=== PATIENT | female | born 1965 | race Caucasian/White ===

== ENCOUNTER 2018-04-25 10:00 | Day surgery (SDC) | payer BC ==
[~2018-04-25 10:00] MED LIST: ALLERGY MED PO; Antacid500 MG PO; BIRTH CONTROL; LISHYD2025 PO; LOSA25 PO; METF500 PO; PRAVASTATIN SOD10 MG PO; Phentermine HCl30 MG PO; SITA100T2 PO
== END 2018-04-30 23:10 | disposition home or self-care (01) ==
LOC: MOI MAM 10:00
DX: D05.11 Intraductal carcinoma in situ of right breast (principal)
CPT/HCPCS: 19081; 88305; 88342

== ENCOUNTER 2018-07-24 13:30 | Day surgery (SDC) | payer BC | END 2018-07-24 23:02 | disposition home or self-care (01) | LOC: NM 13:30 → RAD 13:30 → ORSCMMR 13:30 → NM 14:00 → ORSCMMR 23:02 → NM 23:02 | DX: D05.11 Intraductal carcinoma in situ of right breast (principal) | CPT/HCPCS: 38792; A9520 ==

== ENCOUNTER 2019-05-20 08:57 | Day surgery (SDC) | payer BC ==
[~2019-05-20] VITALS: Ht 170.2 cm; Wt 98.1 kg
[~2019-05-20 08:57] MED LIST changes: +CLON.1 PO; +CLON.5 PO; +Daily Multiple1 EACH PO; +Diethylpropion75 MG PO; +Ferrous Sulfat325 M2 PO; +GLIP10 PO; +LANSOPRAZOLE15 MG PO; +LOSARTAN POTAS100 MG PO; +METO50 PO; +Nolvadex20 MG PO; +Pravachol40 MG PO; +ZYRTEC10 M1 PO
== END 2019-05-20 12:52 | disposition home or self-care (01) ==
LOC: ORSCSDS 08:57
PROVIDERS: Student in an Organized Health Care Education/Training Program
PROC: 0DB48ZX Excision of Esophagogastric Junction, Via Natural or Artificial Opening Endoscopic, Diagnostic (ICD-10-PCS; principal; 2019-05-20 10:15)
PROC: 0DB98ZX Excision of Duodenum, Via Natural or Artificial Opening Endoscopic, Diagnostic (ICD-10-PCS; principal; 2019-05-20 10:15)
PROC: 0DBL8ZX Excision of Transverse Colon, Via Natural or Artificial Opening Endoscopic, Diagnostic (ICD-10-PCS; principal; 2019-05-20 10:15)
PROC: 0DB68ZX Excision of Stomach, Via Natural or Artificial Opening Endoscopic, Diagnostic (ICD-10-PCS; principal; 2019-05-20 10:15)
DX: D50.9 Iron deficiency anemia, unspecified (principal); K44.9 Diaphragmatic hernia without obstruction or gangrene; K21.9 Gastro-esophageal reflux disease without esophagitis; D12.3 Benign neoplasm of transverse colon; Z87.11 Personal history of peptic ulcer disease; I10 Essential (primary) hypertension; E11.9 Type 2 diabetes mellitus without complications; E78.5 Hyperlipidemia, unspecified; Z79.84 Long term (current) use of oral hypoglycemic drugs; Z79.899 Other long term (current) drug therapy
CPT/HCPCS: 82947; 88305; 88342; J2704; J7120

== ENCOUNTER 2022-06-04 23:14 | Inpatient (IN) | payer BC ==
[~2022-06-04] VITALS: Ht 170.2 cm; Wt 81.5 kg
[2022-06-04 23:53] LABS: BASOPHILS ABSOLUTE AUTO 0.03 K/mm3 (0.00-0.23); BASOPHILS PERCENT AUTO 0 % (0-2); EOSINOPHILS ABSOLUTE AUTO 0.34 K/mm3 (0.00-0.68); EOSINOPHILS PERCENT AUTO 5 % (0-6); Hematocrit 37.6 % (33.0-51.0); Hemoglobin 12.5 g/dL (11.5-16.0); IMMATURE GRAN ABSOLUTE AUTO 0.03 K/mm3 (0.00-0.10); IMMATURE GRAN PERCENT AUTO 0 % (0-1); LYMPHOCYTES ABSOLUTE AUTO 2.45 K/mm3 (0.84-5.20); LYMPHOCYTES PERCENT AUTO 33 % (21-46); MONOCYTES ABSOLUTE AUTO 0.53 K/mm3 (0.16-1.47); MONOCYTES PERCENT AUTO 7 % (4-13); Mean Corpuscular HGB 27.1 pg (26.0-34.0); Mean Corpuscular HGB Conc 33.2 g/dL (31.5-36.5); Mean Corpuscular Volume 81 fL (80-100); Mean Platelet Volume 10.7 fL (9.1-12.4); NEUTROPHILS ABSOLUTE AUTO 3.97 K/mm3 (1.96-9.15); NEUTROPHILS PERCENT AUTO 54 % (41-73); Platelet Count 204 K/mm3 (150-400); RDW Coefficient Variation 13.2 % (11.7-14.2); RDW Standard Deviation 38.8 fL (35.1-46.3); Red Blood Cell Count 4.62 M/mm3 (3.80-5.20); White Blood Cell Count 7.35 K/mm3 (4.00-11.30)
[2022-06-05 00:11] LABS: Albumin, Blood 3.5 g/dL (3.4-5.0); Albumin/Globulin Ratio 0.9 (0.8-1.8); Bilirubin, Total 0.2 mg/dL (0.1-1.0); Bun/Creatinine Ratio 20.1 (12.0-20.0); Calcium, Blood 8.4 mg/dL (8.5-10.1); Creatinine, Blood 0.7 mg/dL (0.40-1.00); Globulin, Blood 3.7 g/dL (2.2-4.0); Total Protein, Blood 7.2 g/dL (6.4-8.2)
[2022-06-05 05:56] LABS: Anti-Xa UFH, PHA Monitoring <0.10 IU/mL; International Normalized Ratio 1.12; Prothrombin Time Results 11.7 Sec (9.7-11.5)
[2022-06-05 07:02] LABS: CHOL/HDL RATIO 5.9; Cholesterol 182 mg/dL (50-200); HDL Cholesterol 31 mg/dL (>39); LDL/HDL RATIO 3.3; Low Density Lipoprotein Chol 104 mg/dL (0-110); Triglycerides 236 mg/dL (30-160); Very Low Density Lipoprot Chol 47 mg/dL (6-32)
[2022-06-05 07:21] LABS: BASOPHILS ABSOLUTE AUTO 0.04 K/mm3 (0.00-0.23); BASOPHILS PERCENT AUTO 1 % (0-2); EOSINOPHILS ABSOLUTE AUTO 0.39 K/mm3 (0.00-0.68); EOSINOPHILS PERCENT AUTO 6 % (0-6); Hematocrit 35.8 % (33.0-51.0); Hemoglobin 11.7 g/dL (11.5-16.0); IMMATURE GRAN ABSOLUTE AUTO 0.02 K/mm3 (0.00-0.10); IMMATURE GRAN PERCENT AUTO 0 % (0-1); LYMPHOCYTES ABSOLUTE AUTO 3.21 K/mm3 (0.84-5.20); LYMPHOCYTES PERCENT AUTO 46 % (21-46); MONOCYTES ABSOLUTE AUTO 0.49 K/mm3 (0.16-1.47); MONOCYTES PERCENT AUTO 7 % (4-13); Mean Corpuscular HGB 26.7 pg (26.0-34.0); Mean Corpuscular HGB Conc 32.7 g/dL (31.5-36.5); Mean Corpuscular Volume 82 fL (80-100); Mean Platelet Volume 10.7 fL (9.1-12.4); NEUTROPHILS ABSOLUTE AUTO 2.88 K/mm3 (1.96-9.15); NEUTROPHILS PERCENT AUTO 41 % (41-73); Platelet Count 199 K/mm3 (150-400); RDW Coefficient Variation 13.3 % (11.7-14.2); RDW Standard Deviation 39.4 fL (35.1-46.3); Red Blood Cell Count 4.38 M/mm3 (3.80-5.20); White Blood Cell Count 7.03 K/mm3 (4.00-11.30)
[2022-06-05 07:35] LABS: Albumin, Blood 3.2 g/dL (3.4-5.0); Albumin/Globulin Ratio 0.9 (0.8-1.8); Bilirubin, Total 0.3 mg/dL (0.1-1.0); Bun/Creatinine Ratio 26.6 (12.0-20.0); Creatinine, Blood 0.56 mg/dL (0.40-1.00); Globulin, Blood 3.5 g/dL (2.2-4.0); Potassium, Blood 3.3 mmol/L (3.5-5.5); Total Protein, Blood 6.7 g/dL (6.4-8.2)
[2022-06-05 13:51] LABS: CPK Creatine Kinase 57 U/L (26-193)
[2022-06-05] MEDS ORDERED: Diethylpropion75 MG PO (17:08)
[2022-06-05] MEDS ORDERED: TIZA4 PO (17:09)
--- NOTE | 2022-06-05 17:42 | NUR ---
PT ARRIVED TO PCU 9 VIA STRETCHER FROM [facility] PT ABLE TO STAND AMBULATE AND TRANSFER TO PCU BED REPORT RECEIVED FROM ELIF RN. PT IS ALERT AND ORIENTED X4, ABLE TO MAKE NEEDS KNOWN COOPERATIVE WITH CARES. PT IS HERE FOR CHEST PAIN/NSTEMI. PT STARTED ON HEP GTT VERIFIED WITH DR ARGUELLO, STARTED AT 15U/KG/HR WITH 5000 HEPARIN BOLUS. LAST TROP TRENDING DOWN TO 331. AT APPROX 1520 PT STARTED C/O CHEST PAIN 6/10 PT STATED IT STARTED WITH A PRESSURE IN THE MID OF THE CHEST THAT GOES UP TO HER NECK AND FACE AND NOSE AND SHE'S FEELING TIGHT AND SHORT OF BREATH. VITALS HRR 115-120'S, SBP ELEVATED AT 160-180'S, SATS ABOVE 95% ON RA, AFEBRILE. EKG WAS DONE SHOWING SOME ST CHANGES DR ARGUELLO MADE AWARE AND CAME TO ASSESS PT. CHEST PAIN WAS RELIEVED WITH 2 NITRO DOSES TO /10 WITH CHEST PRESSURE STILL PRESENT. PT STARTED ON NITRO PASTE AND REPEAT EKG AT 1615 WAS DONE RESULT SENT TO DR ARGUELLO ST CHANGES BETTER AFTER THE NITRO PATCH. STILL PT STATED CHEST PRESSURE IS STILL PRESENT /10. PLAN TO DO ANGIOGRAM IN AM, TO KEEP NPO AT MIDNIGHT. AND SON AT THE BEDSIDE AWARE OF THE PLAN. PT NOW EATING DINNER, GOT UP ONCE TO THE BATHROOM WITH NO ISSUES. WILL CONTINUE TO MONITOR
[2022-06-05 21:56] LABS: CPK Creatine Kinase 49 U/L (26-193)
--- NOTE | 2022-06-06 01:37 | NUR ---
PT UPDATE PT PLACED ON 2 L O2 VIA NC D/T SATS DOWN TO 84% WHILE ASLEEP. BACK UP TO 98%. CONTINUES TO DENY CP.
--- NOTE | 2022-06-06 04:00 | NUR ---
CALL TO GEAR LAPPER DR ARGUELLO THIS RN CALLS GEAR LAPPER TO NOTIFY OF RETURN OR CP ON PT AWAKENING WITH LAB DRAW THIS AM WITHIN THE PAST 5-10 MINUTES. PT STATES PAIN IS 2/10 IN CHEST AND MOVES TO L SHOULDER. PT HAS NITRO PASTE IN PLACE. DR ARGUELLO ORDERS REPEAT TROPONIN FOR NOW, NOTIFIED OF REPEAT EKG PERFORMED. ST IN 100'S, SBP CURRENTLY ELEVATED WITH ONSET OF PAIN. PT ALSO C/O WORSE HEADACHE AT THIS TIME. WILL NOTIFY PROVIDER WITH ANY SIGNIFICANT CHANGES, PER DR ARGUELLO PLAN TO CONTINUE CATH THIS AM, STATES THIS RN DOES NOT NEED TO NOTIFY HER OF AN ELEVATED TROPONIN.
[2022-06-06 04:13] LABS: BASOPHILS ABSOLUTE AUTO 0.04 K/mm3 (0.00-0.23); BASOPHILS PERCENT AUTO 1 % (0-2); EOSINOPHILS ABSOLUTE AUTO 0.44 K/mm3 (0.00-0.68); EOSINOPHILS PERCENT AUTO 6 % (0-6); Hematocrit 34.9 % (33.0-51.0); Hemoglobin 11.4 g/dL (11.5-16.0); IMMATURE GRAN ABSOLUTE AUTO 0.02 K/mm3 (0.00-0.10); IMMATURE GRAN PERCENT AUTO 0 % (0-1); LYMPHOCYTES ABSOLUTE AUTO 2.86 K/mm3 (0.84-5.20); LYMPHOCYTES PERCENT AUTO 41 % (21-46); MONOCYTES ABSOLUTE AUTO 0.39 K/mm3 (0.16-1.47); MONOCYTES PERCENT AUTO 6 % (4-13); Mean Corpuscular HGB 27.1 pg (26.0-34.0); Mean Corpuscular HGB Conc 32.7 g/dL (31.5-36.5); Mean Corpuscular Volume 83 fL (80-100); Mean Platelet Volume 10.8 fL (9.1-12.4); NEUTROPHILS ABSOLUTE AUTO 3.19 K/mm3 (1.96-9.15); NEUTROPHILS PERCENT AUTO 46 % (41-73); Platelet Count 194 K/mm3 (150-400); RDW Coefficient Variation 13.4 % (11.7-14.2); RDW Standard Deviation 40.6 fL (35.1-46.3); Red Blood Cell Count 4.21 M/mm3 (3.80-5.20); White Blood Cell Count 6.94 K/mm3 (4.00-11.30)
[2022-06-06 04:33] LABS: Albumin, Blood 3.2 g/dL (3.4-5.0); Bilirubin, Total 0.3 mg/dL (0.1-1.0); Bun/Creatinine Ratio 22.6 (12.0-20.0); Calcium, Blood 8.1 mg/dL (8.5-10.1); Creatinine, Blood 0.53 mg/dL (0.40-1.00); Globulin, Blood 3.2 g/dL (2.2-4.0); Potassium, Blood 3.8 mmol/L (3.5-5.5); Total Protein, Blood 6.4 g/dL (6.4-8.2)
--- NOTE | 2022-06-06 04:38 | NUR ---
PT UPDATE PT STATES SOME SMALL RELIEF IN CP AND BACK PAIN. STATES HEADACHE IS IMPROVED WELL.
--- NOTE | 2022-06-06 05:44 | NUR ---
PT UPDATE PT REPORTS CP HAS CONTINUED TO IMPROVE DOWN TO 07/12 AT THIS TIME.
--- NOTE | 2022-06-06 07:19 | NUR ---
SHIFT SUMMARY PT AOX4 T/O SHIFT. C/O SOME CP THIS AM WITH MORNING LAB DRAW. SYSTEMS ENGINEERING MANAGER CONTACTED (SEE NOTE), NO FURTHER C/O INCREASED CP FOLLOWING DOSE OF FENTANYL PER AUG. NITRO PATCH REMAINS IN PLACE PER ORDER. HEPARIN GTT CONTINUES INFUSING AT SAME RATE PER PHARMACY. PLAN FOR ANGIO CATH THIS AM. PT HAS BEEN NPO SINCE 0000. PT INDEPENDENT UP TO BATHROOM AND BACK TO BED. CALLS APPROPRIATELY.
--- NOTE | 2022-06-06 08:15 | NUR ---
UPDATE PT TAKEN TO [employer]IES TEACHER FOR PROCEDURE. WILL AWAIT RETURN
--- NOTE | 2022-06-06 14:47 | NUR ---
TR BAND STARTED TO DEFLATE PER MAR. 1ML OUT-NO BLEEDING, NO OOZING, SITE SOFT
--- NOTE | 2022-06-06 18:31 | NUR ---
SHIFT SUMMARY PT A&OX4. VSS. PT HAS TR BAND, DEFLATED AT 1730. SLIGHT BRUISING, MARKED W/ SKIN MARKER. SITE SOFT, NO OOZING. PT C/O OF 8/10 HEADACHE PAIN, MEDICATED PER EMAR. PT C/O OF NAUSEA. CANNOT GIVE ANTIEMETICS D/T PROLONGED QT ON LAST EKG. MARINOL X1 GIVEN PER EMAR PER MD MCCLAIN. PT INDEPENDENT IN ROOM, UP TO BATHROOM TO VOID. ONE BM THIS SHIFT. CALL LIGHT IN REACH. FAMILY IN ROOM ALL SHIFT.
--- NOTE | 2022-06-06 19:10 | NUR ---
TR BAND REMOVED FROM R. RADIAL SITE AT 1900, NO BLEEDING OR OOZING NOTED. TEGADERM AND ARM BAND PLACED.
[2022-06-07 01:22] LABS: Hemoglobin 12.4 g/dL (11.5-16.0)
[2022-06-07 01:45] LABS: Albumin, Blood 3.5 g/dL (3.4-5.0); Albumin/Globulin Ratio 0.9 (0.8-1.8); Bilirubin, Total 0.6 mg/dL (0.1-1.0); Bun/Creatinine Ratio 11.6 (12.0-20.0); Calcium, Blood 8.7 mg/dL (8.5-10.1); Creatinine, Blood 0.43 mg/dL (0.40-1.00); Globulin, Blood 3.8 g/dL (2.2-4.0); Potassium, Blood 3.4 mmol/L (3.5-5.5); Total Protein, Blood 7.3 g/dL (6.4-8.2)
--- NOTE | 2022-06-07 05:48 | NUR ---
SHIFT SUMMARY A/OX4, IND IN ROOM. C/O HEADACHE AND ABD PAIN, MEDICATED PER EMAR. DENIES CP/PRESSURE, REFUSED SCHEDULED NITRO PASTE D/T HEADACHE. TR BAND REMOVED AT START OF SHIFT APPROX 1900, NO BLEEDING OR OOZING NOTED, ARM BOARD IN PLACE. PHARMACY NOTIFIED. HEPARIN RESTARTED AT 0150. HYPERTENSIVE, IV HYDRALIZINE GIVEN X1. BED IN LOWEST POSITION WITH CALL LIGHT IN REACH. WILL CONTINUE TO MONITOR AND REPORT TO ONCOMING RN.
--- NOTE | 2022-06-07 10:31 | NUR ---
update PT AMBULATED INDEPENDENTLY W/ RN GUIDING IV POLE FOR WALK AROUND UNIT X2. PT DENIED CP, SOB. PT STATES, "IT FEELS GOOD TO MOVE AND NOT BE SITTING."
--- NOTE | 2022-06-07 18:10 | NUR ---
SHIFT SUMMARY NO ACUTE CHANGES THIS SHIFT. PT A&OX4, VSS. PT HAS R RADIAL SITE FROM PREVIOUS DAY, SLIGHT BRUISING, NO BLEEDING/HEMATOMA. OPSITE CHANGED THIS SHIFT. ARM BOARD IN PLACE. HEPARIN INFUSING PER EMAR. PT C/O OF PAIN, MEDICATED PER EMAR. STATES NAUSEA IS GETTING BETTER, ABLE TO EAT SOME OF MEALS. INDEPENDENT IN ROOM. AMBULATED AROUND UNIT TODAY, SEE PREVIOUS NOTE. CALL LIGHT INREACH. FAMILY IN ROOM ALL DAY.
--- NOTE | 2022-06-07 23:08 | NUR ---
SHIFT SUMMARY PATIENT ALERT AND ORIENTED x4, VSS, PATIENT ON RA WITH O2 SAT >90%. DENIES CHEST PAIN. HEPARIN GTT INFUSING. RIGHT RADIAL SITE RECOVERED, ARM BAND REMOVED AROUND 1999. NO SIGNS OF BLEEDING, SMALL AMOUNT OF BRUSING AROUND SITE. TEGADERM IN PLACE, C/D/I. PATIENT INDEPENDENT IN THE ROOM. PATIENT DID REPORT MINIMAL VAGINAL SPOTTING DURING DAY SHIFT. NPO AT 0000 FOR POSSIBLE PROCEDURE TOMORROW. NO OTHER SIGNIFICANT CHANGES THIS SHIFT, WILL REPORT TO ONCOMING RN.
[2022-06-08 00:54] LABS: Hematocrit 37.1 % (33.0-51.0); Hemoglobin 12.7 g/dL (11.5-16.0)
[2022-06-08 05:37] LABS: Albumin, Blood 3.4 g/dL (3.4-5.0); Albumin/Globulin Ratio 0.9 (0.8-1.8); Bilirubin, Total 0.4 mg/dL (0.1-1.0); Bun/Creatinine Ratio 18.1 (12.0-20.0); Calcium, Blood 8.3 mg/dL (8.5-10.1); Creatinine, Blood 0.5 mg/dL (0.40-1.00); Globulin, Blood 3.7 g/dL (2.2-4.0); Potassium, Blood 3.5 mmol/L (3.5-5.5); Total Protein, Blood 7.1 g/dL (6.4-8.2)
--- NOTE | 2022-06-08 05:58 | NUR ---
SHIFT SUMMARY PT A&OX4, MOVES IND IN THE ROOM, HAS A HEP DRIP RUNNING AT 18GTT, AND HAS BEEN NPO SINCE 0000 FOR A FOLLOW UP ANGIO THIS AM. SHE HAS DENIED HER NITRO DUE TO A HEADACHE. PREVIOUS NURSE MEDICATED HER W/ MORPHINE AND IT RELIEVED HER HEADACHE. SHE DENIES SOB AND ANGINA AT THIS TIME. SHE HAS BEEN SATURATING >90% ON ROOM AIR, AND HAS BEEN SR 90'S-100'S ON TELE. WILL CONTINUE TO MONITOR UNTIL SHIFT REPORT IS GIVEN TO THE ONCOMING SHIFT RN. SEE NOTES FOR ANY UPDATES.
[2022-06-08 15:59] LABS: Hematocrit 38.9 % (33.0-51.0)
--- NOTE | 2022-06-08 18:13 | NUR ---
PT SUMMARY: PT HAD ANGIO DONE TODAY GOT 4 MORE SMALLER STENTS IN LAD. PT RECEVERED WELL TR BAND FULLY RECOVERED ON RIGHT WRIST CLEAR DRESSING IN PLACE. HAS SOME BRUISING AROUND THE SITE THAT IS MARKED NO HEMATOMA OR SWELLING NOTED. VITALS HRR SR 70'S, SBP 110-120'S, SATS ABOVE 95% ON RA, AFEBRILE. PT HAS ONGOING VAGINAL BLEEDING POST PROCEDURE USED ATLEAST 4 PADS/PULL UPS WITH SOME MEDIUM SIZE CLOTS, PT DENIES ANY PAIN POST PROCEDURE. OB GYNE CAME IN TO SEE PT, TO START MEASURING VAGINAL BLOOD LOSS, H&H CAME BACK WNL AT 13, FOLLOW -UP H&H AT 2100. AND DAUGHTER HAS BEEN AT THE BEDSIDE MOSTLY ALL SHIFT, UPDATED ABOUT THE PLANS. NO OTHER COMPLAINS AT THIS TIME, PT ABLE TO MAKE NEEDS KNOWN WILL REPORT TO ONCOMING SHIFT
[2022-06-09 03:38] LABS: BASOPHILS ABSOLUTE AUTO 0.03 K/mm3 (0.00-0.23); BASOPHILS PERCENT AUTO 0 % (0-2); EOSINOPHILS ABSOLUTE AUTO 0.53 K/mm3 (0.00-0.68); EOSINOPHILS PERCENT AUTO 7 % (0-6); Hematocrit 36.5 % (33.0-51.0); Hemoglobin 12.3 g/dL (11.5-16.0); IMMATURE GRAN ABSOLUTE AUTO 0.03 K/mm3 (0.00-0.10); IMMATURE GRAN PERCENT AUTO 0 % (0-1); LYMPHOCYTES ABSOLUTE AUTO 2.51 K/mm3 (0.84-5.20); LYMPHOCYTES PERCENT AUTO 31 % (21-46); MONOCYTES ABSOLUTE AUTO 0.58 K/mm3 (0.16-1.47); MONOCYTES PERCENT AUTO 7 % (4-13); Mean Corpuscular HGB 27.5 pg (26.0-34.0); Mean Corpuscular HGB Conc 33.7 g/dL (31.5-36.5); Mean Corpuscular Volume 82 fL (80-100); Mean Platelet Volume 10.1 fL (9.1-12.4); NEUTROPHILS ABSOLUTE AUTO 4.44 K/mm3 (1.96-9.15); NEUTROPHILS PERCENT AUTO 55 % (41-73); Platelet Count 215 K/mm3 (150-400); RDW Coefficient Variation 13.2 % (11.7-14.2); Red Blood Cell Count 4.47 M/mm3 (3.80-5.20); White Blood Cell Count 8.12 K/mm3 (4.00-11.30)
[2022-06-09 04:31] LABS: Albumin, Blood 3.3 g/dL (3.4-5.0); Albumin/Globulin Ratio 0.9 (0.8-1.8); Bilirubin, Total 0.5 mg/dL (0.1-1.0); Bun/Creatinine Ratio 18.3 (12.0-20.0); Calcium, Blood 8.1 mg/dL (8.5-10.1); Creatinine, Blood 0.6 mg/dL (0.40-1.00); Globulin, Blood 3.8 g/dL (2.2-4.0); Potassium, Blood 3.4 mmol/L (3.5-5.5); Total Protein, Blood 7.1 g/dL (6.4-8.2)
--- NOTE | 2022-06-09 05:33 | NUR ---
SHIFT SUMMARY PT IS A&0X4, IND IN THE ROOM, SR 70'S-80'S ON TELE, AND WAS SATURATING >90% ROOM AIR UNTIL ABOUT 0530 THIS AM. SHE BEGAN TO DESATURATE AND HAD TO BE PUT ON 1L NC TO MAINTAIN HER SATS >90%. SHE HAS DENIED SOB, ANGINA, PAIN, N/V/D, AMD HAS BEEN RESTING THE ENTIRE NIGHT W/O COMPLAINTS. HER ANGIO SITE ON HER RIGHT WRIST IS WNL AND HAS A TEGADERM INTACT. BED IS IN LOW AND CALL LIGHT IS IN REACH. WILL CONTINUE TO MONITOR UNTIL SHIFT REPORT IS GIVEN TO THE ONOCMING SHIFT RN. SEE NOTES FOR ANY UPDATES.
[2022-06-09] MEDS ORDERED: AMLO10 PO (11:18)
[2022-06-09] MEDS ORDERED: ANASTROZOLE1 M7 PO (11:20)
[2022-06-09] MEDS ORDERED: ASPI81CH PO (11:21)
[2022-06-09] MEDS ORDERED: ATOR40TA PO (11:22)
[2022-06-09] MEDS ORDERED: CLOP75 PO (11:23)
[2022-06-09] MEDS ORDERED: OMEGA-3 FISH O1 EAC6 PO (11:32)
--- NOTE | 2022-06-09 13:07 | NUR ---
DISCHARGE UPDATE DISCHARGE PACKET GONE OVER WITH PT AND PT AT 1300. PT DISCHARGED AT 1305 VIA WHEELCHAIR AND ON RA. PT BELONGINGS IN BAGS AND WITH PT DURING DISCHARGE. STENT CARDS IN DISCHARGE PACKET AND WITH PT DURING DISCHARGE. PT ABLE TO TRANSFER SELF TO AND FROM WHEELCHAIR ON HER OWN, TOLERATED WELL.
== END 2022-06-09 13:07 | disposition home or self-care (01) | DRG 246 ==
LOC: ER 23:14 → ERHOLD 23:15 → PCU 23:15
PROVIDERS: Family Medicine; Physician Assistant; Student in an Organized Health Care Education/Training Program; ADMIT Internal Medicine
PROC: 027036Z Dilation of Coronary Artery, One Artery with Three Drug-eluting Intraluminal Devices, Percutaneous Approach (ICD-10-PCS; principal; 2022-06-06)
PROC: 027037Z Dilation of Coronary Artery, One Artery with Four or More Drug-eluting Intraluminal Devices, Percutaneous Approach (ICD-10-PCS; 2022-06-06)
PROC: 02F03ZZ Fragmentation in Coronary Artery, One Artery, Percutaneous Approach (ICD-10-PCS; 2022-06-06)
PROC: 4A023N7 Measurement of Cardiac Sampling and Pressure, Left Heart, Percutaneous Approach (ICD-10-PCS; 2022-06-06)
PROC: B2111ZZ Fluoroscopy of Multiple Coronary Arteries using Low Osmolar Contrast (ICD-10-PCS; 2022-06-06)
PROC: B240ZZ3 Ultrasonography of Single Coronary Artery, Intravascular (ICD-10-PCS; 2022-06-06)
DX: I21.4 Non-ST elevation (NSTEMI) myocardial infarction (principal); B37.49 Other urogenital candidiasis; Z79.84 Long term (current) use of oral hypoglycemic drugs; Z85.3 Personal history of malignant neoplasm of breast; I10 Essential (primary) hypertension; D64.9 Anemia, unspecified; E78.5 Hyperlipidemia, unspecified; N93.8 Other specified abnormal uterine and vaginal bleeding; N85.00 Endometrial hyperplasia, unspecified; E11.65 Type 2 diabetes mellitus with hyperglycemia; F41.9 Anxiety disorder, unspecified; K44.9 Diaphragmatic hernia without obstruction or gangrene; R51.9 Headache, unspecified
CPT/HCPCS: 36415; 71046; 71260; 76830; 76856; 76937; 80053; 80061; 82550; 82947; 83036; 83690; 83880; 84132; 84484; 85014; 85018; 85025; 85347; 85520; 85610; 85730; 86850; 86900; 86901; 90686; 92920; 92978; 93005; 93010; 93454; 96374; 96375; 99152; 99153; 99285-25; A9270; C1725; C1753; C1761; C1769; C1874; C1887; C1894; C9113; C9600; C9602; G0378; J0360; J1644; J1815; J2250; J2270; J3010; J7030; J7040; J7050; Q0167; Q9967

== ENCOUNTER 2022-11-14 19:56 | Emergency (ER) | payer BC ==
[~2022-11-14] VITALS: Ht 170.2 cm; Wt 93.0 kg
[~2022-11-14 19:56] MED LIST changes: +AMLO10 PO; +ANASTROZOLE1 M7 PO; +ASPI81CH PO; +ATOR40TA PO; +CLOP75 PO; +OMEGA-3 FISH O1 EAC6 PO; +TIZA4 PO
[2022-11-15 00:20] VITALS: BP 177/99
== END 2022-11-15 00:21 | disposition home or self-care (01) ==
LOC: ER 19:56
DX: Z48.01 Encounter for change or removal of surgical wound dressing (principal); Z79.84 Long term (current) use of oral hypoglycemic drugs; Z79.899 Other long term (current) drug therapy; Z79.82 Long term (current) use of aspirin
CPT/HCPCS: 99283